=== PATIENT | male | born 1995 | race Caucasian/White ===

== ENCOUNTER 2018-05-14 15:29 | Emergency (ER) | payer OTHER ==
[2018-05-14] MEDS ORDERED: SULFAMETHOXAZOLE/TRIMETHOPRIM 800-160 MG TABLET PO ONE (16:38)
[2018-05-14] MEDS ORDERED: IBUPROFEN 800 MG TABLET PO ONE (16:39)
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
[2018-05-14 17:41] VITALS: BP 120/59
== END 2018-05-14 17:41 | disposition home or self-care (01) ==
LOC: ER 15:29
DX: S81.811D Laceration without foreign body, right lower leg, subsequent encounter (principal); S01.81XD Laceration without foreign body of other part of head, subsequent encounter; W01.0XXD Fall on same level from slipping, tripping and stumbling without subsequent striking against object, subsequent encounter; H92.09 Otalgia, unspecified ear
CPT/HCPCS: 70486; 99283